=== PATIENT | female | born 1995 | race Caucasian/White ===

== ENCOUNTER 2019-05-28 00:54 | Emergency (ER) | payer BC ==
[~2019-05-28] VITALS: Ht 167.6 cm; Wt 113.6 kg
[2019-05-28 02:44] LABS: BASO # 0.1 (0.0-0.2); BASO % 0.7 % (0.0-2.0); EOS # 0.2 (0.0-0.7); EOS % 1.6 % (0-4.0); GRAN # 8.3 (1.4-6.5); GRAN % 71.4 % (42.2-75.2); HEMATOCRIT 41.6 % (37.0-47.0); LYMPH # 2.2 (1.2-3.4); LYMPH % 18.9 % (20.0-51.0); MEAN CELL VOLUME 83 fl (80.0-100.0); MEAN CORPUSCULAR HEMOGLOBIN 28 pg (27.0-31.0); MEAN CORPUSCULAR HGB CONC 34 g/dl (33.0-37.0); MEAN PLATELET VOLUME 8.5 fl (7.4-10.4); MONO # 0.7 (0.1-0.6); MONO % 6.3 % (1.7-9.3); PLATELET COUNT 451 K/mm3 (130-400); RED BLOOD COUNT 5.01 M/mm3 (4.10-5.30); REDCELL DISTRIBUTION WIDTH-CV 13.1 % (11.5-14.5)
[2019-05-28 02:54] LABS: ALBUMIN 4.9 gm/dL (3.5-5.0); BILIRUBIN,TOTAL 0.5 mg/dL (0.0-1.0); CALCIUM 9.7 mg/dL (8.4-10.2); CREATININE, serum 0.62 (0.52-1.25); SALICYLATE 1.1 mg/dL; TOTAL PROTEIN 8.5 gm/dL (6.4-8.2)
[2019-05-28 03:39] LABS: COLLECTION METHOD CLEAN CATCH
[2019-05-28 03:46] LABS: MUCOUS Present /lpf; PH 5 (5-8); SQUAMOUS EPITHELIAL 0-2 /hpf; URINE APPEARANCE Clear; URINE BACTERIA Rare /hpf; URINE BILIRUBIN Negative (NEGATIVE); URINE BLOOD 1+ (NEGATIVE); URINE COLOR Straw; URINE GLUCOSE Negative (NEGATIVE); URINE KETONE Negative (NEGATIVE); URINE LEUKOCYTE ESTERASE Negative (NEGATIVE); URINE NITRATE Negative (NEGATIVE); URINE PROTEIN(semi-quant) Negative (NEGATIVE); URINE RBC 0-2 /hpf; URINE UROBILINOGEN Negative (NEGATIVE)
[2019-05-28 03:51] LABS: TRICYCLIC ANTIDEPRESS URINE NEGATIVE
[2019-05-28] MEDS ORDERED: CLARITIN 1010 MG/TAB PO (08:27)
[2019-05-28] MEDS ORDERED: ADVIL LIQUI-GE200 MG PO (08:28)
[2019-05-28] MEDS ORDERED: TYLENOL 325MG325 MG PO (09:06)
[2019-05-28] MEDS ORDERED: ROBITUSSIN100 MG/5 M PO (09:07)
[2019-05-28 11:42] VITALS: BP 143/77; PULSE 84; TEMP 98.5
== END 2019-05-28 11:42 | disposition home or self-care (01) ==
LOC: COL.ER 00:54
PROVIDERS: Emergency Medicine
DX: F10.129 Alcohol abuse with intoxication, unspecified (principal); F17.210 Nicotine dependence, cigarettes, uncomplicated; F32.9 Major depressive disorder, single episode, unspecified; Y90.6 Blood alcohol level of 120-199 mg/100 ml
CPT/HCPCS: J2405